=== PATIENT | male | born 1950 | race Caucasian/White ===

== ENCOUNTER 2016-09-06 07:35 | Day surgery (SDC) | payer BC ==
[2016-09-06] MEDS ORDERED: MIDAZOLAM HCL 2MG/2ML VIAL IV ONE (13:19)
[2016-09-06] MEDS ORDERED: LIDOCAINE 2% MDV (20MG/ML) 20ML VIAL IV ONE (13:19)
[2016-09-06] MEDS ORDERED: PROPOFOL 10 MG/ML VIAL IV ONE (13:19)
--- NOTE | 2016-09-11 15:53 | Operative Note ---
DATE OF SURGERY: 09/06/2016 OPERATION: COLONOSCOPY with cold forceps polypectomy. PREOPERATIVE DIAGNOSIS: Colorectal cancer screening, average risk. POSTOPERATIVE DIAGNOSES: 1. Descending colon polyp. 2. Sigmoid diverticulosis. PREPARATION QUALITY: Good to excellent. ESTIMATED BLOOD LOSS: Minimum. SPECIMENS: Descending polyp. COMPLICATIONS: None apparent. PROCEDURE: After informed consent was obtained from the patient, he was placed in the left lateral decubitus position in the endoscopy suite, sedated and monitored by the department of anesthesia. Digital rectal exam was unremarkable. A well-lubricated [id number] colonoscope was inserted into the rectum and advanced to the cecum. Preparation quality was good to excellent. The ileocecal valve, appendiceal orifice, ascending colon, and transverse colon were free of inflammatory changes, mass lesions, or polyps. There was a diminutive descending colon polyp which was removed in piecemeal fashion with a cold forceps. Minimal bleeding was noted. The sigmoid colon revealed a few diverticula but no other abnormalities. The rectum was unremarkable in forward and in J-turn views. The endoscope was straightened, the rectal ampulla deflated, and the endoscope was removed. RECOMMENDATIONS: The patient should follow a high-fiber diet. He will require repeat colonoscopy in 5-10 years pending tissue histology. As always, thank you for allowing me to participate in the healthcare of your patients. CC: Dr. Julian GRUBBS
== END 2016-09-06 10:02 | disposition home or self-care (01) ==
LOC: HOP 07:35
PROVIDERS: ATTEND Internal Medicine Gastroenterology
DX: Z12.11 Encounter for screening for malignant neoplasm of colon (principal); D12.4 Benign neoplasm of descending colon; K57.30 Diverticulosis of large intestine without perforation or abscess without bleeding; E78.00 Pure hypercholesterolemia, unspecified

== ENCOUNTER 2016-10-12 17:29 | Inpatient (IN) | payer BC ==
[2016-10-12 18:08] LABS: BASO % 0.5 % (0-6); EOS % 1.4 % (0-6); GRAN % 60.9 % (47-80); HEMOGLOBIN 15.1 gm/dl (14.0-18.0); LYMPH % 31.4 % (16-45); MEAN CELL VOLUME 82.7 fl (81-97); MEAN CORPUSCULAR HGB CONC 35.1 g/dl (32-36); MONO % 5.8 % (0-9); PLATELET COUNT 292 K/uL (130-400); RED CELL DISTRIBUTION WIDTH 12.1 % (11.5-14.5); WHITE BLOOD COUNT W/O DIFF 9.2 K/uL (4.2-12.2)
[2016-10-12 18:21] LABS: ACETONE,SERUM NEGATIVE (NEGATIVE)
--- NOTE | 2016-10-12 18:22 | Emergency Department Record ---
History of Present Illness - General Chief complaint: Hypergylcemia Stated complaint: HIGH BLOOD SUGAR Time Seen by Provider: 10/12/16 17:55 Source: Patient Mode of Arrival: Ambulatory Limitations: No limitations - History of Present Illness Initial comments: pt had a colonoscopy a month ago and ever since has been having increased thirst , tiredness and urination. he checked his bs yesterday on his sisters acucheck and found that he was high. he bought a glucometer today and checked it again and it was 489. he also has been having blurred vision. MD Complaint: Lack of energy -: Unknown Consistency: Getting worse Improves with: None Worsens with: None - [place] Coma Scale Eye Response: (4) Open spontaneously Motor Response: (6) Obeys commands Verbal Response: (5) Oriented Jerry Total: 15 - Related Data Home Medications Medication Instructions Recorded Confirmed Last Taken Atorvastatin Calcium [Lipitor] 20 mg PO DAILY 10/12/16 10/12/16 10/12/16 Allergies Allergy/AdvReac Type Severity Reaction Status Date / Time codeine AdvReac ABDOMINAL Verified 10/12/16 17:46 PAIN Travel Screening - Travel/Exposure Within Last 30 Days Have you traveled within the last 30 days?: No - Travel/Exposure Within Last Year Have you traveled outside the [place] in the last year?: No - Additonal Travel Details Have you been exposed to anyone with a communicable illness?: No - Travel Symptoms Symptom Screening: None Review of Systems Reviewed: No additional complaints except as noted below Constitutional: Reports: As per HPI. Denies: Chills, Fever, Malaise, Night sweats, Weakness, Weight change Eyes: Reports: As per HPI. Denies: Eye discharge, Eye pain, Photophobia, Vision change ENT: Reports: As per HPI. Denies: Congestion, Dental pain, Ear pain, Epistaxis , Hearing loss, Throat pain Respiratory: Reports: As per HPI. Denies: Cough, Dyspnea, Hemoptysis, Stridor, Wheezes Cardiovascular: Reports: As per HPI. Denies: Arrhythmia, Chest pain, Dyspnea on exertion, Edema, Murmurs, Orthopnea, Palpitations, Paroxysmal nocturnal dyspnea, Rheumatic Fever, Syncope Endocrine: Reports: As per HPI. Denies: Fatigue, Heat or cold intolerance, Polydipsia, Polyuria Gastrointestinal: Reports: As per HPI. Denies: Abdominal pain, Constipation, Diarrhea, Hematemesis, Hematochezia, Melena, Nausea, Vomiting Genitourinary: Reports: As per HPI. Denies: Dysuria, Frequency, Hematuria, Incontinence, Retention, Testicular pain, Testicular mass, Urgency Musculoskeletal: Reports: As per HPI. Denies: Arthralgia, Back pain, Gout, Joint swelling, Myalgia, Neck pain Skin: Reports: As per HPI. Denies: Bruising, Change in color, Change in hair/ nails, Lesions, Pruritus, Rash Neurological: Reports: As per HPI. Denies: Abnormal gait, Confusion, Headache, Numbness, Paresthesias, Seizure, Tingling, Tremors, Vertigo, Weakness Psychiatric: Reports: As per HPI. Denies: Anxiety, Auditory hallucinations, Depression, Homicidal thoughts, Suicidal thoughts, Visual hallucinations Hematological/Lymphatic: Reports: As per HPI. Denies: Anemia, Blood Clots, Easy bleeding, Easy bruising, Swollen glands Past Medical History - SOCIAL HISTORY Smoking Status: Never smoker Alcohol Use: Occassional Drug Use: None - RESPIRATORY Hx Respiratory Disorders: Yes Hx Pneumonia: Yes - CARDIOVASCULAR Hx Cardio Disorders: Yes Comment:: high cholesterol - NEURO Hx Neuro Disorders: No - GI Hx GI Disorders: No - Hx Genitourinary Disorders: No - ENDOCRINE Hx Endocrine Disorders: No - MUSCULOSKELETAL Hx Musculoskeletal Disorders: Yes Hx Arthritis: Yes (right knee) Comment:: pain right knee - PSYCH Hx Psych Problems: No - HEMATOLOGY/ONCOLOGY Hx Hematology/Oncology Disorders: No Family Medical History Any Significant Family History?: Yes Hx Diabetes: Father, Mother Hx Heart Disease: Mother, Brother/Sister Physical Exam - General General Appearance: Alert, Oriented x3, Cooperative, Mild distress - Head Head exam: Normal inspection - Eye Eye exam: Normal appearance, PERRL, EOMI Pupils: Normal accommodation - ENT ENT exam: Normal exam, Mucous membranes dry, Normal external ear exam, Normal orophraynx Ear exam: Normal external inspection. negative: External canal tenderness Nasal Exam: Normal inspection. negative: Discharge, Sinus tenderness Mouth exam: Normal external inspection, Tongue normal Teeth exam: Normal inspection. negative: Dental caries Throat exam: Normal inspection. negative: Tonsillar erythema, Tonsillar exudate - Neck Neck exam: Normal inspection, Full ROM. negative: Tenderness - Respiratory Respiratory exam: Normal lung sounds bilaterally. negative: Respiratory distress - Cardiovascular Cardiovascular Exam: Regular rate, Normal rhythm, Normal heart sounds - GI/Abdominal GI/Abdominal exam: Soft, Normal bowel sounds. negative: Tenderness - Rectal Rectal exam: Deferred - exam: Deferred - Extremities Extremities exam: Normal inspection, Full ROM, Normal capillary refill. negative: Tenderness - Back Back exam: Reports: Normal inspection, Full ROM. Denies: Muscle spasm, Rash noted, Tenderness - Neurological Neurological exam: Alert, CN II-XII intact, Normal gait, Oriented X3 - Psychiatric Psychiatric exam: Normal affect, Normal mood - Skin Skin exam: Dry, Intact, Normal color, Warm Course Vital Signs 10/12/16 17:48 Temperature 98.3 F Pulse Rate 96 H Respiratory 20 Rate Blood Pressure 132/102 Pulse Ox 97 Medical Decision Making - Management Options MDM Management: Additional Work-up Planned (e.g. ADM/Transfer/OP Study) - Data Complexity MDM Data: Labs Ordered and/or Reviewed, X-Ray Ordered and/or Reviewed - Lab Data Result diagrams: 10/12/16 18:00 10/12/16 18:00 Lab Results 10/12/16 10/12/16 10/12/16 Range/Units 17:56 18:00 18:00 WBC 9.2 (4.2-12.2) K/uL RBC 5.20 (4.40-5.70) M/uL Hgb 15.1 (14.0-18.0) gm/dl Hct 43.0 (42.0-52.0) % MCV 82.7 (81-97) fl MCH 29.0 (27-33) pg MCHC 35.1 (32-36) g/dl RDW 12.1 (11.5-14.5) % Plt Count 292 (130-400) K/uL MPV 11.0 H (7.4-10.4) fl Gran % 60.9 (47-80) % Lymphocytes % 31.4 (16-45) % Monocytes % 5.8 (0-9) % Eosinophils % 1.4 (0-6) % Basophils % 0.5 (0-6) % VBG pH 7.42 H (7.32-7.41) POC Glucose 472 H* (70-110) mg/dL Disposition Disposition: Admit Clinical Impression: New onset type 2 diabetes mellitus Hyperglycemia due to type 2 diabetes mellitus Qualifiers: Diabetes mellitus exterminator helper insulin use: without exterminator helper use Qualified Code(s ): E11.65 - Type 2 diabetes mellitus with hyperglycemia Disposition: Still a Patient at [facility] Decision to Admit: Admit from ER Decision to Admit Date: 10/12/16 Decision to Admit Time: 18:44 Forms: Patient Portal Access
[2016-10-12 18:24] LABS: ANION GAP 11.5 (7-16); BLOOD UREA NITROGEN 20 mg/dL (9-20); CARBON DIOXIDE 22.5 mmol/L (22-30); CREATININE 0.9 mg/dL (0.66-1.25); EST GLOMERULAR FILTRATION RATE > 60 ml/min
[2016-10-12] MEDS ORDERED: HUMULIN R 100 UNIT/ML VIAL SQ ONE ×2 (18:25→19:26)
[2016-10-12] MEDS ORDERED: 0.9 % SODIUM CHLORIDE 1,000 ML BAG IV ONE (18:25)
[2016-10-12 18:30] LABS: GLUCOSE,RANDOM 519 mg/dL (70-110)
[2016-10-12 18:30] LABS: URINE APPEARANCE CLEAR; URINE BILIRUBIN NEGATIVE (NEGATIVE); URINE BLOOD NEGATIVE (NEGATIVE); URINE COLOR YELLOW; URINE KETONE 15 mg/dL (NEGATIVE); URINE LEUKOCYTE ESTERASE NEGATIVE (NEGATIVE); URINE NITRITE NEGATIVE (NEGATIVE); URINE PROTEIN NEGATIVE (NEGATIVE); URINE UROBILINOGEN 0.2 E.U./dL (0.20 - 1.00)
[2016-10-12 18:31] LABS: URINE GLUCOSE (UA) >=1000 mg/dL (NEGATIVE)
[2016-10-12] MEDS ORDERED: HUMULIN R 100 UNIT/ML VIAL SQ PRN (19:47)
[2016-10-12] MEDS ORDERED: NOVOLOG FLEXPEN (INSULIN ASPART) 100 UNITS/ML SQ ONE (20:38)
[2016-10-12] MEDS: NOVOLOG FLEXPEN (INSULIN ASPART) 100 UNITS/ML SQ SCH (22:45)
[2016-10-12] MEDS: 0.9 % SODIUM CHLORIDE 1000ML 1,000 ML IV PRN (22:48)
[2016-10-13 06:24] LABS: BASO % 0.6 % (0-6); EOS % 2.4 % (0-6); GRAN % 48.7 % (47-80); HEMATOCRIT 37.4 % (42.0-52.0); HEMOGLOBIN 13.1 gm/dl (14.0-18.0); LYMPH % 41.6 % (16-45); MEAN CELL VOLUME 83.3 fl (81-97); MEAN PLATELET VOLUME 10.8 fl (7.4-10.4); MONO % 6.7 % (0-9); PLATELET COUNT 238 K/uL (130-400); RED BLOOD COUNT 4.49 M/uL (4.40-5.70); RED CELL DISTRIBUTION WIDTH 12.1 % (11.5-14.5); WHITE BLOOD COUNT W/O DIFF 8.1 K/uL (4.2-12.2)
[2016-10-13 06:33] LABS: ALB/GLOB RATIO 1.3 (1.1-1.8); ALBUMIN 3.4 gm/dL (3.5-5.0); ALKALINE PHOSPHATASE 85 U/L (38-126); ALT/SGPT 37 U/L (21-72); ANION GAP 8.1 (7-16); AST/SGOT 22 U/L (17-59); BILIRUBIN,TOTAL 0.69 mg/dL (0.2-1.3); BLOOD UREA NITROGEN 16 mg/dL (9-20); CARBON DIOXIDE 23.9 mmol/L (22-30); CHOLESTEROL 131 mg/dL (0-200); CREATININE 0.7 mg/dL (0.66-1.25); EST GLOMERULAR FILTRATION RATE > 60 ml/min; GLUCOSE,RANDOM 154 mg/dL (70-110); HDL CHOLESTEROL 24 mg/dL (40-60); TOTAL PROTEIN 6.1 gm/dL (6.3-8.2); TRIGLYCERIDES 136 mg/dL (30-200); VLDL CHOLESTEROL 27 mg/dL (10.00-40.00)
[2016-10-13 06:34] LABS: MEAN CORPUSCULAR HEMOGLOBIN 29.1 pg (27-33)
[2016-10-13 06:46] LABS: LDL CHOLESTEROL/MEASURED 86.5 mg/dL (0-100)
[2016-10-13 07:04] LABS: THYROID STIMULATING HORMONE 1.72 uIU/ml (0.465-4.68)
[2016-10-13] MEDS: NOVOLOG FLEXPEN (INSULIN ASPART) 100 UNITS/ML SQ SCH ×4 (07:45→22:08)
[2016-10-13] MEDS: METFORMIN ER HCL 500 MG TAB.ER.24H PO SCH (07:45)
[2016-10-13] MEDS: ASPIRIN 81 MG TABEC PO SCH (09:25)
[2016-10-13] MEDS: ACETAMINOPHEN 500 MG TABLET PO PRN ×2 (09:25→22:15)
[2016-10-13] MEDS: LISINOPRIL 5 MG TABLET PO SCH (09:26)
[2016-10-13] MEDS: ATORVASTATIN 20 MG TABLET PO SCH (09:26)
[2016-10-13] MEDS: 0.9 % SODIUM CHLORIDE 1000ML 1,000 ML IV PRN ×2 (15:32→23:55)
[2016-10-14] MEDS: METFORMIN ER HCL 500 MG TAB.ER.24H PO SCH (07:36)
[2016-10-14] MEDS: NOVOLOG FLEXPEN (INSULIN ASPART) 100 UNITS/ML SQ SCH (07:37)
--- NOTE | 2016-10-14 07:55 | History & Physical ---
History of Present Illness - Date of Service Date of Service for History & Physical: 10/13/16 - History of Present Illness Admitting Diagnosis: new onset diabetes History of Present Illness: 66 y/o male with CC blurry vision, urinary frequency, increased thirst admitted for new onset DM. Past medical history included pneumonia, high cholesterol, right knee arthritis. Prior to arrival reported blurry vision, urinary frequency, increased thirst that has progressively worsened since August 2016. Used his brother's glucometer to check blood sugar and the meter read "high". Reports strong family history of DM (mother, 2 siblings). Last eye exam was 1 year ago. Reports over the past couple of years his PCP has been monitoring borderline high blood sugars but has not been started on any medications. Is not a smoker. Exercises3-4 days per week (45-60 min on treadmill). Reports he usually eats an "ok" diet but began eating more junk food after he retired 10 years ago. Denies chest pain or neuropathy. While in ED his blood sugar was >500, A!C 13.68. Short acting insulin given in ED, tolerated well. Admitted for initiation of diabetes medical management, education and IV hydration. EKG NSR. Laboratory Results WBC 8.1 K/uL (4.2-12.2) 10/13/16 05:55 RBC 4.49 M/uL (4.40-5.70) 10/13/16 05:55 Hgb 13.1 gm/dl (14.0-18.0) L 10/13/16 05:55 Hct 37.4 % (42.0-52.0) L 10/13/16 05:55 MCV 83.3 fl (81-97) 10/13/16 05:55 MCH 29.1 pg (27-33) 10/13/16 05:55 MCHC 35.0 g/dl (32-36) 10/13/16 05:55 RDW 12.1 % (11.5-14.5) 10/13/16 05:55 Plt Count 238 K/uL (130-400) 10/13/16 05:55 MPV 10.8 fl (7.4-10.4) H 10/13/16 05:55 Gran % 48.7 % (47-80) 10/13/16 05:55 Lymphocytes % 41.6 % (16-45) 10/13/16 05:55 Monocytes % 6.7 % (0-9) 10/13/16 05:55 Eosinophils % 2.4 % (0-6) 10/13/16 05:55 Basophils % 0.6 % (0-6) 10/13/16 05:55 VBG pH 7.42 (7.32-7.41) H 10/12/16 18:00 Sodium 139 mmol/L (136-145) 10/13/16 05:55 Potassium 3.6 mmol/L (3.5-5.1) 10/13/16 05:55 Chloride 107 mmol/L (98-107) 10/13/16 05:55 Carbon Dioxide 23.9 mmol/L (22-30) 10/13/16 05:55 Anion Gap 8.1 (7-16) 10/13/16 05:55 BUN 16 mg/dL (9-20) 10/13/16 05:55 Creatinine 0.7 mg/dL (0.66-1.25) 10/13/16 05:55 Estimated GFR > 60 ml/min 10/13/16 05:55 POC Glucose 176 mg/dL (70-110) H 10/14/16 07:00 Random Glucose 154 mg/dL (70-110) H 10/13/16 05:55 Hemoglobin A1c 13.68 % (4.80-6.00) H 10/12/16 18:00 Calcium 9.1 mg/dL (8.5-10.1) 10/13/16 05:55 Total Bilirubin 0.69 mg/dL (0.2-1.3) 10/13/16 05:55 AST 22 U/L (17-59) 10/13/16 05:55 ALT 37 U/L (21-72) 10/13/16 05:55 Alkaline Phosphatase 85 U/L (38-126) 10/13/16 05:55 Total Protein 6.1 gm/dL (6.3-8.2) L 10/13/16 05:55 Albumin 3.4 gm/dL (3.5-5.0) L 10/13/16 05:55 Globulin 2.7 gm/dL (1.4-4.8) 10/13/16 05:55 Albumin/Globulin Ratio 1.3 (1.1-1.8) 10/13/16 05:55 Triglycerides 136 mg/dL (30-200) 10/13/16 05:55 Cholesterol 131 mg/dL (0-200) 10/13/16 05:55 LDL Cholesterol [place] 86.5 mg/dL (0-100) 10/13/16 05:55 VLDL Cholesterol 27 mg/dL (10.00-40.00) 10/13/16 05:55 HDL Cholesterol 24 mg/dL (40-60) L 10/13/16 05:55 TSH 1.72 uIU/ml (0.465-4.68) 10/13/16 05:55 Urine Color Yellow 10/12/16 18:25 Urine Appearance Clear 10/12/16 18:25 Urine pH 5.5 (5.0-8.0) 10/12/16 18:25 Ur Specific [place] 1.010 (1.002-1.030) 10/12/16 18:25 Urine Protein Negative (NEGATIVE) 10/12/16 18:25 Urine Glucose (UA) >=1000 mg/dl (NEGATIVE) H 10/12/16 18:25 Urine Ketones 15 mg/dl (NEGATIVE) H 10/12/16 18:25 Urine Blood Negative (NEGATIVE) 10/12/16 18:25 Urine Nitrite Negative (NEGATIVE) 10/12/16 18:25 Urine Bilirubin Negative (NEGATIVE) 10/12/16 18:25 Urine Urobilinogen 0.2 E.U./dL (0.20 - 1.00) 10/12/16 18:25 Ur Leukocyte Esterase Negative (NEGATIVE) 10/12/16 18:25 Acetone, Qual Negative (NEGATIVE) 10/12/16 18:00 Vital Signs - Last 24 Hrs Temp Pulse Resp BP Pulse Ox 10/14/16 10:00 97.7 F 76 16 135/78 97 10/14/16 07:48 16 10/14/16 07:11 97.8 F 61 18 108/61 97 10/13/16 22:00 98.7 F 61 18 138/[address] Jordan Travel Screening - Travel/Exposure Within Last 30 Days Have you traveled within the last 30 days?: No - Travel/Exposure Within Last Year Have you traveled outside the [place] in the last year?: No - Additonal Travel Details Have you been exposed to anyone with a communicable illness?: No - Travel Symptoms Symptom Screening: None Review of Systems Constitutional: Reports: As per HPI. Denies: Chills, Fever, Malaise, Night sweats, Weakness, Weight change Eyes: Reports: As per HPI. Denies: Eye discharge, Eye pain, Photophobia, Vision change ENT: Reports: As per HPI. Denies: Congestion, Dental pain, Ear pain, Epistaxis , Hearing loss, Throat pain Respiratory: Reports: As per HPI. Denies: Cough, Dyspnea, Hemoptysis, Stridor, Wheezes Cardiovascular: Reports: As per HPI. Denies: Arrhythmia, Chest pain, Dyspnea on exertion, Edema, Murmurs, Orthopnea, Palpitations, Paroxysmal nocturnal dyspnea, Rheumatic Fever, Syncope Endocrine: Reports: As per HPI. Denies: Fatigue, Heat or cold intolerance, Polydipsia, Polyuria Gastrointestinal: Reports: As per HPI. Denies: Abdominal pain, Constipation, Diarrhea, Hematemesis, Hematochezia, Melena, Nausea, Vomiting Genitourinary: Reports: As per HPI. Denies: Dysuria, Frequency, Hematuria, Incontinence, Retention, Testicular pain, Testicular mass, Urgency Musculoskeletal: Reports: As per HPI. Denies: Arthralgia, Back pain, Gout, Joint swelling, Myalgia, Neck pain Skin: Reports: As per HPI. Denies: Bruising, Change in color, Change in hair/ nails, Lesions, Pruritus, Rash Neurological: Reports: As per HPI. Denies: Abnormal gait, Confusion, Headache, Numbness, Paresthesias, Seizure, Tingling, Tremors, Vertigo, Weakness Psychiatric: Reports: As per HPI. Denies: Anxiety, Auditory hallucinations, Depression, Homicidal thoughts, Suicidal thoughts, Visual hallucinations Hematological/Lymphatic: Reports: As per HPI. Denies: Anemia, Blood Clots, Easy bleeding, Easy bruising, Swollen glands Past Medical History - SOCIAL HISTORY Smoking Status: Never smoker - RESPIRATORY Hx Respiratory Disorders: Yes Hx Asthma: No Hx Bronchitis: No Hx COPD: No Hx Dyspnea: No Hx Pneumonia: Yes - CARDIOVASCULAR Hx Cardio Disorders: Yes Comment:: high cholesterol - NEURO Hx Neuro Disorders: No - GI Hx GI Disorders: No - Hx Genitourinary Disorders: No - ENDOCRINE Hx Endocrine Disorders: No - MUSCULOSKELETAL Hx Musculoskeletal Disorders: Yes Hx Arthritis: Yes (right knee) Comment:: pain right knee - PSYCH Hx Psych Problems: No - HEMATOLOGY/ONCOLOGY Hx Hematology/Oncology Disorders: No Family Medical History Any Significant Family History?: Yes Hx Diabetes: Father, Mother Hx Heart Disease: Mother, Brother/Sister H&P Meds/Allergies - Allergies Allergies: Allergies Allergy/AdvReac Type Severity Reaction Status Date / Time codeine AdvReac ABDOMINAL Verified 10/12/16 17:46 PAIN - Home Medications Home Medications Medication Instructions Recorded Confirmed Last Taken Atorvastatin Calcium [Lipitor] 20 mg PO DAILY 10/12/16 10/12/16 10/12/16 Previous Rx's Medication Instructions Recorded Aspirin Enteric-Coated [Ecotrin 81 mg PO DAILY 10/14/16 (EC)] Insulin Aspart [Novolog Flexpen] 1 unit SQ QIDINS #3 ml 10/14/16 Lisinopril [Zestril] 5 mg PO DAILY #30 tab 10/14/16 Metformin ER HCl [Glucophage Xr] 500 mg PO DAILYAC #120 tab.er.24h 10/14/16 - Active Medications Active Medications: Current Medications Acetaminophen (Tylenol 500mg Tab) 1,000 mg PO Q6H PRN PRN Reason: PAIN/TEMP Last Admin: 10/13/16 22:15 Dose: 1,000 mg Aspirin (Ecotrin (Ec)) 81 mg PO DAILY [facility] Last Admin: 10/13/16 09:25 Dose: 81 mg Atorvastatin Calcium (Lipitor) 20 mg PO DAILY [facility] Last Admin: 10/13/16 09:26 Dose: 20 mg Sodium Chloride () 1,000 mls @ 125 mls/hr IV .Q8H PRN PRN Reason: LARGE VOLUME IV Last Admin: 10/13/16 23:55 Dose: 125 mls/hr Insulin Aspart (Novolog Flexpen) 1 unit SQ QIDINS [facility] PRN Reason: Protocol Last Admin: 10/14/16 07:37 Dose: 8 unit Lisinopril (Zestril) 5 mg PO DAILY [facility] Last Admin: 10/13/16 09:26 Dose: 5 mg Metformin HCl (Glucophage Xr) 500 mg PO DAILYAC [facility] Last Admin: 10/14/16 07:36 Dose: 500 mg Physical Exam - Vital Signs Vital Signs: Vital Signs - Last 24 Hrs Temp Pulse Resp BP Pulse Ox 10/14/16 07:48 16 10/14/16 07:11 97.8 F 61 18 108/61 97 10/13/16 22:00 98.7 F 61 18 138/79 97 10/13/16 17:45 97.8 F 76 16 128/76 95 10/13/16 14:00 97.7 F 76 16 132/74 97 10/13/16 09:04 98.1 F 72 20 118/76 95 10/13/16 08:12 20 - General General Appearance: Alert, Oriented x3, Cooperative, No acute distress Limitations: No limitations - Head Head exam: Normal inspection - Eye Eye exam: Normal appearance, PERRL, EOMI Pupils: Normal accommodation - ENT ENT exam: Normal exam, Mucous membranes dry, Normal external ear exam, Normal orophraynx Ear exam: Normal external inspection. negative: External canal tenderness Nasal Exam: Normal inspection. negative: Discharge, Sinus tenderness Mouth exam: Normal external inspection, Tongue normal Teeth exam: Normal inspection. negative: Dental caries Throat exam: Normal inspection. negative: Tonsillar erythema, Tonsillar exudate - Neck Neck exam: Normal inspection, Full ROM. negative: Tenderness - Respiratory Respiratory exam: Normal lung sounds bilaterally. negative: Respiratory distress - Cardiovascular Cardiovascular Exam: Regular rate, Normal rhythm, Normal heart sounds Peripheral Pulses: 2+: Dorsalis Pedis (R), Dorsalis Pedis (L) - GI/Abdominal GI/Abdominal exam: Soft, Normal bowel sounds. negative: Tenderness - Rectal Rectal exam: Deferred - exam: Deferred - Extremities Extremities exam: Normal inspection, Full ROM, Normal capillary refill. negative: Tenderness - Back Back exam: Reports: Normal inspection, Full ROM. Denies: Muscle spasm, Rash noted, Tenderness - Neurological Neurological exam: Alert, CN II-XII intact, Normal gait, Oriented X3 - Psychiatric Psychiatric exam: Normal affect, Normal mood - Skin Skin exam: Dry, Intact, Normal color, Warm Results - Labs Result Diagrams: 10/13/16 05:55 10/13/16 05:55 Labs Last 24 Hours: Laboratory Results - last 24 hr 10/13/16 10/13/16 10/14/16 17:46 22:00 07:00 POC Glucose 301 H 228 H 176 H VTE H&P Assessment - Risk for VTE Risk for VTE: Yes Risk Level: Low Risk Assessment Date: 10/13/16 Risk Assessment Time: 09:00 VTE Orders Placed or Will Be Placed: Yes Plan - Inpatient Certification Inpatient Certification: Admit to inpatient care: Based on my medical assessment, after consideration of patient's risk factors (age, co-morbidities and patient presenting symptoms and acuity), I expect that this patient will remain in the hospital greater than or equal to two midnights and that the services needed warrant inpatient care because: Patient Risk Factors: [] Estimated length of stay: [] The patient may reasonably be expected to be discharged or transferred to a hospital within 96 hours after admission to [facility]. Services needed: [] Post hospital care (if known): [] I certify that my determination is in accordance with my understanding of Medicare requirements for reasonable and necessary inpatient services. - Detailed Diagnosis and Plan (1) Hyperglycemia due to type 2 diabetes mellitus Status: Acute Qualifiers: Diabetes mellitus termite control servicer insulin use: without termite control servicer use Qualified Code(s): E11.65 - Type 2 diabetes mellitus with hyperglycemia Base Code: E11.65 - TYPE 2 DIABETES MELLITUS WITH HYPERGLYCEMIA Comment: - 66 y/o male admitted new onswt DM after 1 month history of urinary frequency , increased thirst and blurry vision. Has strong family hx DM. FBS this am 154 - Metform initiated at 500mg QD with goal of 2,000mg total daily dosing - accu check AC/HS with sliding scale insulin, nursing to instruct testing and self administration - will not inititate long acting insulin at this time as FBS <200, admits to poor eating habits and commits to healthier eating habits - nursing to provide ADA diet information - continue to exercise per usual routine - ASA 81mg, TITO initiated-tolerating well - FLP this am unremarkable, already taking statin - TSH normal - plan for accu check AC/HS at discharge with sliding scale until follow up with PCP - will discharge in am (2) New onset type 2 diabetes mellitus Status: Acute Base Code: E11.9 - TYPE 2 DIABETES MELLITUS WITHOUT COMPLICATIONS Comment: 10/13/16- 66 y/o male admitted new onswt DM after 1 month history of urinary frequency, increased thirst and blurry vision. Has strong family hx DM. FBS this am 154 - Metform initiated at 500mg QD with goal of 2,000mg total daily dosing - accu check AC/HS with sliding scale insulin, nursing to instruct testing and self administration - will not inititate long acting insulin at this time as FBS <200, admits to poor eating habits and commits to healthier eating habits - nursing to provide ADA diet information - continue to exercise per usual routine - ASA 81mg, TITO initiated-tolerating well - FLP this am unremarkable, already taking statin - TSH normal - plan for accu check AC/HS at discharge with sliding scale until follow up with PCP - will discharge in am (3) DVT prophylaxis Status: Acute Base Code: [id number] - Comment: 10/13/16- ASA 81 mg, nursing to encourage frequent ambulation (4) Full code status Status: Acute Base Code: Z78.9 - OTHER SPECIFIED HEALTH STATUS Comment: 10/13- will remain full code during this hospitalization
--- NOTE | 2016-10-14 08:01 | Discharge Summary ---
Providers Discharge Summary Date: 10/14/16 Date of admission: 10/12/16 19:38 Expected Date of Discharge: 10/14/16 Attending physician: MARY MARTINEZ Primary care physician: LEYDA BOOTH D.O. Physical Exam - Vital Signs Vital Signs: Vital Signs - Last 24 Hrs Temp Pulse Resp BP Pulse Ox 10/14/16 07:48 16 10/14/16 07:11 97.8 F 61 18 108/61 97 10/13/16 22:00 98.7 F 61 18 138/79 97 10/13/16 17:45 97.8 F 76 16 128/76 95 10/13/16 14:00 97.7 F 76 16 132/74 97 10/13/16 09:04 98.1 F 72 20 118/76 95 10/13/16 08:12 20 - General General Appearance: Alert, Oriented x3, Cooperative, Mild distress Limitations: No limitations - Head Head exam: Normal inspection - Eye Eye exam: Normal appearance, PERRL, EOMI Pupils: Normal accommodation - ENT ENT exam: Normal exam, Mucous membranes dry, Normal external ear exam, Normal orophraynx Ear exam: Normal external inspection. negative: External canal tenderness Nasal Exam: Normal inspection. negative: Discharge, Sinus tenderness Mouth exam: Normal external inspection, Tongue normal Teeth exam: Normal inspection. negative: Dental caries Throat exam: Normal inspection. negative: Tonsillar erythema, Tonsillar exudate - Neck Neck exam: Normal inspection, Full ROM. negative: Tenderness - Respiratory Respiratory exam: Normal lung sounds bilaterally. negative: Respiratory distress - Cardiovascular Cardiovascular Exam: Regular rate, Normal rhythm, Normal heart sounds - GI/Abdominal GI/Abdominal exam: Soft, Normal bowel sounds. negative: Tenderness - Rectal Rectal exam: Deferred - exam: Deferred - Extremities Extremities exam: Normal inspection, Full ROM, Normal capillary refill. negative: Tenderness - Back Back exam: Reports: Normal inspection, Full ROM. Denies: Muscle spasm, Rash noted, Tenderness - Neurological Neurological exam: Alert, CN II-XII intact, Normal gait, Oriented X3 - Psychiatric Psychiatric exam: Normal affect, Normal mood - Skin Skin exam: Dry, Intact, Normal color, Warm Hospitalization - Hospitalization Admission Diagnosis: new onset diabetes - Problem List/Discharge Diagnosis (1) Hyperglycemia due to type 2 diabetes mellitus Status: Acute Discharge Diagnosis: Diabetes mellitus terminal supervisor insulin use: without mcfp use Qualified Code(s): E11.65 - Type 2 diabetes mellitus with hyperglycemia Base Code: E11.65 - TYPE 2 DIABETES MELLITUS WITH HYPERGLYCEMIA Comment: - 66 y/o male admitted new onswt DM after 1 month history of urinary frequency , increased thirst and blurry vision. Has strong family hx DM. FBS 10/13 154, <200. Continues to have blood sugar >250 throughout the day - Metform initiated at 500mg QD with goal of 2,000mg total daily dosing-is tolerating well - accu check AC/HS with sliding scale insulin, nursing to instruct testing and self administration - will not inititate long acting insulin at this time as FBS <200, admits to poor eating habits and commits to healthier eating habits - nursing to provide ADA diet information - continue to exercise per usual routine - ASA 81mg, TITO initiated-tolerating well - FLP unremarkable, already taking statin - TSH normal - plan for accu check AC/HS at discharge with sliding scale until follow up with PCP - follow up PCP 1-2 week after discharge (2) New onset type 2 diabetes mellitus Status: Acute Base Code: E11.9 - TYPE 2 DIABETES MELLITUS WITHOUT COMPLICATIONS Comment: 10/14/16- 66 y/o male admitted new onswt DM after 1 month history of urinary frequency, increased thirst and blurry vision. Has strong family hx DM. FBS 10/13 154, 10/14 <200. Continues to have blood sugar > 250 throughout the day - Metform initiated at 500mg QD with goal of 2,000mg total daily dosing-is tolerating well - accu check AC/HS with sliding scale insulin, nursing to instruct testing and self administration - will not inititate long acting insulin at this time as FBS <200, admits to poor eating habits and commits to healthier eating habits - nursing to provide ADA diet information - continue to exercise per usual routine - ASA 81mg, TITO initiated-tolerating well - FLP unremarkable, already taking statin - TSH normal - plan for accu check AC/HS at discharge with sliding scale until follow up with PCP - follow up PCP 1-2 week after discharge (3) DVT prophylaxis Status: Acute Base Code: [id number] - Comment: 10/14/16- ASA 81 mg, nursing to encourage frequent ambulation (4) Full code status Status: Acute Base Code: Z78.9 - OTHER SPECIFIED HEALTH STATUS Comment: 10/14- will remain full code during this hospitalization - Hospitalization Course Disposition: Home, Self-Care Hospital Course: Admitting Diagnosis: new onset diabetes History of Present Illness: 66 y/o male with CC blurry vision, urinary frequency, increased thirst admitted for new onset DM. Past medical history included pneumonia, high cholesterol, right knee arthritis. Prior to arrival reported blurry vision, urinary frequency, increased thirst that has progressively worsened since August 2016. Used his brother's glucometer to check blood sugar and the meter read "high". Reports strong family history of DM (mother, 2 siblings). Last eye exam was 1 year ago. Reports over the past couple of years his PCP has been monitoring borderline high blood sugars but has not been started on any medications. Is not a smoker. Exercises3-4 days per week (45-60 min on treadmill). Reports he usually eats an "ok" diet but began eating more junk food after he retired 10 years ago. Denies chest pain or neuropathy. While in ED his blood sugar was >500, A!C 13.68. Short acting insulin given in ED, tolerated well. Admitted for initiation of diabetes medical management, education and IV hydration. EKG NSR. Laboratory Results WBC 8.1 K/uL (4.2-12.2) 10/13/16 05:55 RBC 4.49 M/uL (4.40-5.70) 10/13/16 05:55 Hgb 13.1 gm/dl (14.0-18.0) L 10/13/16 05:55 Hct 37.4 % (42.0-52.0) L 10/13/16 05:55 MCV 83.3 fl (81-97) 10/13/16 05:55 MCH 29.1 pg (27-33) 10/13/16 05:55 MCHC 35.0 g/dl (32-36) 10/13/16 05:55 RDW 12.1 % (11.5-14.5) 10/13/16 05:55 Plt Count 238 K/uL (130-400) 10/13/16 05:55 MPV 10.8 fl (7.4-10.4) H 10/13/16 05:55 Gran % 48.7 % (47-80) 10/13/16 05:55 Lymphocytes % 41.6 % (16-45) 10/13/16 05:55 Monocytes % 6.7 % (0-9) 10/13/16 05:55 Eosinophils % 2.4 % (0-6) 10/13/16 05:55 Basophils % 0.6 % (0-6) 10/13/16 05:55 VBG pH 7.42 (7.32-7.41) H 10/12/16 18:00 Sodium 139 mmol/L (136-145) 10/13/16 05:55 Potassium 3.6 mmol/L (3.5-5.1) 10/13/16 05:55 Chloride 107 mmol/L (98-107) 10/13/16 05:55 Carbon Dioxide 23.9 mmol/L (22-30) 10/13/16 05:55 Anion Gap 8.1 (7-16) 10/13/16 05:55 BUN 16 mg/dL (9-20) 10/13/16 05:55 Creatinine 0.7 mg/dL (0.66-1.25) 10/13/16 05:55 Estimated GFR > 60 ml/min 10/13/16 05:55 POC Glucose 176 mg/dL (70-110) H 10/14/16 07:00 Random Glucose 154 mg/dL (70-110) H 10/13/16 05:55 Hemoglobin A1c 13.68 % (4.80-6.00) H 10/12/16 18:00 Calcium 9.1 mg/dL (8.5-10.1) 10/13/16 05:55 Total Bilirubin 0.69 mg/dL (0.2-1.3) 10/13/16 05:55 AST 22 U/L (17-59) 10/13/16 05:55 ALT 37 U/L (21-72) 10/13/16 05:55 Alkaline Phosphatase 85 U/L (38-126) 10/13/16 05:55 Total Protein 6.1 gm/dL (6.3-8.2) L 10/13/16 05:55 Albumin 3.4 gm/dL (3.5-5.0) L 10/13/16 05:55 Globulin 2.7 gm/dL (1.4-4.8) 10/13/16 05:55 Albumin/Globulin Ratio 1.3 (1.1-1.8) 10/13/16 05:55 Triglycerides 136 mg/dL (30-200) 10/13/16 05:55 Cholesterol 131 mg/dL (0-200) 10/13/16 05:55 LDL Cholesterol [place] 86.5 mg/dL (0-100) 10/13/16 05:55 VLDL Cholesterol 27 mg/dL (10.00-40.00) 10/13/16 05:55 HDL Cholesterol 24 mg/dL (40-60) L 10/13/16 05:55 TSH 1.72 uIU/ml (0.465-4.68) 10/13/16 05:55 Urine Color Yellow 10/12/16 18:25 Urine Appearance Clear 10/12/16 18:25 Urine pH 5.5 (5.0-8.0) 10/12/16 18:25 Ur Specific [place] 1.010 (1.002-1.030) 10/12/16 18:25 Urine Protein Negative (NEGATIVE) 10/12/16 18:25 Urine Glucose (UA) >=1000 mg/dl (NEGATIVE) H 10/12/16 18:25 Urine Ketones 15 mg/dl (NEGATIVE) H 10/12/16 18:25 Urine Blood Negative (NEGATIVE) 10/12/16 18:25 Urine Nitrite Negative (NEGATIVE) 10/12/16 18:25 Urine Bilirubin Negative (NEGATIVE) 10/12/16 18:25 Urine Urobilinogen 0.2 E.U./dL (0.20 - 1.00) 10/12/16 18:25 Ur Leukocyte Esterase Negative (NEGATIVE) 10/12/16 18:25 Acetone, Qual Negative (NEGATIVE) 10/12/16 18:00 Vital Signs - Last 24 Hrs Temp Pulse Resp BP Pulse Ox 10/14/16 10:00 97.7 F 76 16 135/78 97 10/14/16 07:48 16 10/14/16 07:11 97.8 F 61 18 108/61 97 10/13/16 22:00 98.7 F 61 18 138/[address] Booth Procedures: Cardiology Procedures 10/13/16 06:00 EKG ONCE Abnormal Labs: Abnormal Lab Results 10/12/16 10/12/16 10/13/16 Range/Units 20:30 22:37 05:55 Hgb 13.1 L (14.0-18.0) gm/dl Hct 37.4 L (42.0-52.0) % MPV 10.8 H (7.4-10.4) fl POC Glucose 342 H 341 H (70-110) mg/dL Random Glucose (70-110) mg/dL Total Protein (6.3-8.2) gm/dL Albumin (3.5-5.0) gm/dL HDL Cholesterol (40-60) mg/dL 10/13/16 10/13/16 10/13/16 Range/Units 05:55 17:46 22:00 Hgb (14.0-18.0) gm/dl Hct (42.0-52.0) % MPV (7.4-10.4) fl POC Glucose 301 H 228 H (70-110) mg/dL Random Glucose 154 H (70-110) mg/dL Total Protein 6.1 L (6.3-8.2) gm/dL Albumin 3.4 L (3.5-5.0) gm/dL HDL Cholesterol 24 L (40-60) mg/dL 10/14/16 Range/Units 07:00 Hgb (14.0-18.0) gm/dl Hct (42.0-52.0) % MPV (7.4-10.4) fl POC Glucose 176 H (70-110) mg/dL Random Glucose (70-110) mg/dL Total Protein (6.3-8.2) gm/dL Albumin (3.5-5.0) gm/dL HDL Cholesterol (40-60) mg/dL Condition at Discharge: (2) Stable Discharge Medications - Discharge Medications Prescriptions: Insulin Aspart [Novolog Flexpen] 1 unit SQ QIDINS #3 ml Lisinopril [Zestril] 5 mg PO DAILY #30 tab Metformin ER HCl [Glucophage Xr] 500 mg PO DAILYAC #120 tab.er.24h Home Medications: Ambulatory Orders Atorvastatin Calcium [Lipitor] 20 mg PO DAILY 10/12/16 [Last Taken 10/12/16] Aspirin Enteric-Coated [Ecotrin (EC)] 81 mg PO DAILY 10/14/16 [Last Taken Unknown] Insulin Aspart [Novolog Flexpen] 1 unit SQ QIDINS #3 ml 10/14/16 [Last Taken Unknown] Lisinopril [Zestril] 5 mg PO DAILY #30 tab 10/14/16 [Last Taken Unknown] Metformin ER HCl [Glucophage Xr] 500 mg PO DAILYAC #120 tab.er.24h 10/14/16 [ Last Taken Unknown] Discharge Plan - Discharge Instructions Activity at Discharge: Resume Usual Activities As Tolerated Diet at Discharge: Diabetic Diet, Low Fat, Low Cholesterol Instructions: How to Check Your Blood Sugar (DC), Diabetic Ketoacidosis (DC), Hypoglycemia in a Person with Diabetes (DC), Type 2 Diabetes in Adults (DC), What is Insulin (DC), How to Give an Insulin Injection (DC), Insulin Pens (DC), Managing Diabetes During Sick Days (DC), Diabetic Hyperglycemia (DC) Additional Instructions: Check your blood sugar before each meal and give yourself insulin based on your sliding scale. Keep a record of your blood sugars and how much insulin you are taking. Take this with you to see Dr Booth. Follow ADA diet. Watch for signs of low blood sugar (below 80)(hypoglycemia) See handout. Follow up with your doctor this week. Contact [facility] diabetic classes [phone] Activity as tolerated-exercise is important Resume home meds. Return to the ED if having signs of hypoglycemia/hyperglycemia (high blood sugar ) If any questions call the nurses station [phone] Take Metformin as directed Take Lisinopril as directed.
[2016-10-14] MEDS: ASPIRIN 81 MG TABEC PO SCH (09:13)
[2016-10-14] MEDS: ATORVASTATIN 20 MG TABLET PO SCH (09:13)
[2016-10-14] MEDS: LISINOPRIL 5 MG TABLET PO SCH (09:13)
== END 2016-10-14 10:00 | disposition home or self-care (01) | DRG 639 ==
LOC: ER 17:29 → MEDSURG 19:38
PROVIDERS: ADMIT Family Medicine; ATTEND Family Medicine
DX: E11.65 Type 2 diabetes mellitus with hyperglycemia (principal); Z79.4 Long term (current) use of insulin; Z79.84 Long term (current) use of oral hypoglycemic drugs; Z78.9 Other specified health status; E78.00 Pure hypercholesterolemia, unspecified
CPT/HCPCS: 36416; 80048; 80053; 80061; 81003; 82009; 82800; 82948; 83036; 84443; 85025; 93005; 93010; 96372; 99223; 99239; 99285; J7030

== ENCOUNTER 2017-05-01 08:09 | Emergency (ER) | payer BC ==
[2017-05-01 09:06] LABS: BASO % 0.6 % (0-6); EOS % 2.2 % (0-6); GRAN % 57.7 % (47-80); HEMATOCRIT 38.3 % (42.0-52.0); HEMOGLOBIN 12.6 gm/dl (14.0-18.0); LYMPH % 31.4 % (16-45); MEAN CELL VOLUME 86.5 fl (81-97); MEAN CORPUSCULAR HEMOGLOBIN 28.4 pg (27-33); MEAN CORPUSCULAR HGB CONC 32.9 g/dl (32-36); MONO % 8.1 % (0-9); PLATELET COUNT 240 K/uL (130-400); RED BLOOD COUNT 4.43 M/uL (4.40-5.70); RED CELL DISTRIBUTION WIDTH 12.2 % (11.5-14.5); WHITE BLOOD COUNT W/O DIFF 6.8 K/uL (4.2-12.2)
--- NOTE | 2017-05-01 09:14 | Emergency Department Record ---
History of Present Illness - General Chief complaint: Nosebleed/epistaxis Stated complaint: NOSE BLEED Time Seen by Provider: 05/01/17 08:37 Source: Patient Mode of Arrival: Ambulatory - History of Present Illness Initial comments: right nostril nose bleed and on asa and anat complaint: Epistaxis Onset/Timin -: Hour(s) Location: Nose Context-Epistaxis: Warfarin use - Related Data Home Medications Medication Instructions Recorded Confirmed Last Taken Ticagrelor [Brilinta] 60 mg PO DAILY 05/01/17 05/01/17 Unknown Previous Rx's Medication Instructions Recorded Aspirin Enteric-Coated [Ecotrin 81 mg PO DAILY 10/14/16 (EC)] Insulin Aspart [Novolog Flexpen] 1 unit SQ QIDINS #3 ml 10/14/16 Lisinopril [Zestril] 5 mg PO DAILY #30 tab 10/14/16 Metformin ER HCl [Glucophage Xr] 500 mg PO DAILYAC #120 tab.er.24h 10/14/16 Allergies Allergy/AdvReac Type Severity Reaction Status Date / Time codeine AdvReac ABDOMINAL Verified 05/01/17 08:18 PAIN Travel Screening - Travel/Exposure Within Last 30 Days Have you traveled within the last 30 days?: No Review of Systems Reviewed: No additional complaints except as noted below Constitutional: Reports: As per HPI. Denies: Chills, Fever, Malaise, Night sweats, Weakness, Weight change Eyes: Reports: As per HPI. Denies: Eye discharge, Eye pain, Photophobia, Vision change ENT: Reports: As per HPI, Epistaxis. Denies: Congestion, Dental pain, Ear pain , Hearing loss, Throat pain Respiratory: Reports: As per HPI. Denies: Cough, Dyspnea, Hemoptysis, Stridor, Wheezes Cardiovascular: Reports: As per HPI. Denies: Arrhythmia, Chest pain, Dyspnea on exertion, Edema, Murmurs, Orthopnea, Palpitations, Paroxysmal nocturnal dyspnea, Rheumatic Fever, Syncope Endocrine: Reports: As per HPI. Denies: Fatigue, Heat or cold intolerance, Polydipsia, Polyuria Gastrointestinal: Reports: As per HPI. Denies: Abdominal pain, Constipation, Diarrhea, Hematemesis, Hematochezia, Melena, Nausea, Vomiting Genitourinary: Reports: As per HPI. Denies: Dysuria, Frequency, Hematuria, Incontinence, Retention, Testicular pain, Testicular mass, Urgency Musculoskeletal: Reports: As per HPI. Denies: Arthralgia, Back pain, Gout, Joint swelling, Myalgia, Neck pain Skin: Reports: As per HPI. Denies: Bruising, Change in color, Change in hair/ nails, Lesions, Pruritus, Rash Neurological: Reports: As per HPI. Denies: Abnormal gait, Confusion, Headache, Numbness, Paresthesias, Seizure, Tingling, Tremors, Vertigo, Weakness Psychiatric: Reports: As per HPI. Denies: Anxiety, Auditory hallucinations, Depression, Homicidal thoughts, Suicidal thoughts, Visual hallucinations Hematological/Lymphatic: Reports: As per HPI. Denies: Anemia, Blood Clots, Easy bleeding, Easy bruising, Swollen glands Past Medical History - SOCIAL HISTORY Smoking Status: Never smoker Alcohol Use: None Drug Use: None - RESPIRATORY Hx Respiratory Disorders: Yes Hx Pneumonia: Yes - CARDIOVASCULAR Hx Cardio Disorders: Yes Hx Cardiac Cath: Yes Hx Chest Pain: Yes Comment:: high cholesterol, stent - NEURO Hx Neuro Disorders: No - GI Hx GI Disorders: No - Hx Genitourinary Disorders: No - ENDOCRINE Hx Endocrine Disorders: Yes Hx Diabetes: Yes - MUSCULOSKELETAL Hx Musculoskeletal Disorders: Yes Hx Arthritis: Yes (right knee) Comment:: pain right knee - PSYCH Hx Psych Problems: No - HEMATOLOGY/ONCOLOGY Hx Hematology/Oncology Disorders: No Family Medical History Any Significant Family History?: Yes Hx Diabetes: Father, Mother Hx Heart Disease: Mother, Brother/Sister Physical Exam - General General Appearance: Alert, Oriented x3, Cooperative, No acute distress - Head Head exam: Normal inspection - Eye Eye exam: Normal appearance, PERRL Pupils: Normal accommodation - ENT ENT exam: Normal exam, Mucous membranes moist, Normal external ear exam, Normal orophraynx, TM's normal bilaterally Ear exam: Normal external inspection. negative: External canal tenderness Nasal Exam: Normal inspection. negative: Discharge, Sinus tenderness Mouth exam: Normal external inspection, Tongue normal Teeth exam: Normal inspection. negative: Dental caries Throat exam: Normal inspection. negative: Tonsillar erythema, Tonsillar exudate - Neck Neck exam: Normal inspection, Full ROM. negative: Tenderness - Respiratory Respiratory exam: Normal lung sounds bilaterally. negative: Respiratory distress - Cardiovascular Cardiovascular Exam: Regular rate, Normal rhythm, Normal heart sounds - GI/Abdominal GI/Abdominal exam: Soft, Normal bowel sounds. negative: Tenderness - Rectal Rectal exam: Deferred - exam: Deferred - Extremities Extremities exam: Normal inspection, Full ROM, Normal capillary refill. negative: Tenderness - Back Back exam: Reports: Normal inspection, Full ROM. Denies: Muscle spasm, Rash noted, Tenderness - Neurological Neurological exam: Alert, Normal gait, Oriented X3, Reflexes normal - Psychiatric Psychiatric exam: Normal affect, Normal mood - Skin Skin exam: Dry, Intact, Normal color, Warm Course Vital Signs 05/01/17 08:14 Temperature 97.9 F Pulse Rate 77 Respiratory 20 Rate Blood Pressure 157/83 Pulse Ox 98 - Reevaluation(s) Reevaluation #1: blow clots out and placed TLE on cotton ball and than cautery to kesselbach's with silver nitrate 05/01/17 11:06 Reevaluation #2: bleeding stopped 05/01/17 11:12 Reevaluation #3: still bleeding and inserted a inflatable rhino rockiet with air and it is a anterior packing 05/01/17 12:07 Reevaluation #4: bleeding controlled 05/01/17 12:23 Medical Decision Making - Lab Data Result diagrams: 05/01/17 09:00 Disposition Clinical Impression: Anterior epistaxis Disposition: Home, Self-Care Condition: (1) Good Instructions: Nosebleed (ED) Additional Instructions: follow up with Dr. Jordan in 2 days to remove nasal blimp or return to the ED stop aspirin and brilanta for 3 days Forms: Patient Portal Access Time of Disposition: 11:14 Quality - Quality Measures Quality Measures: N/A - Blood Pressure Screening Does Patient Have Any of the Following: No, Active Dx of HTN Blood Pressure Classification: Pre-Hypertensive BP Reading Systolic Measurement: 157 Diastolic Measurement: 83 Screening for High Blood Pressure: Patient Exclusion, Hx of HTN [[id number]]
[2017-05-01 09:17] LABS: INR 1.05; PROTHROMBIN TIME (PATIENT) 11.3 SECONDS (9.5-12.1)
[2017-05-01] MEDS: TOPICAL LIDOCAINE W/ EPI 5 ML TOP ONE (09:59)
== END 2017-05-01 12:47 | disposition home or self-care (01) ==
LOC: ER 08:09
DX: R04.0 Epistaxis (principal); Z79.01 Long term (current) use of anticoagulants
CPT/HCPCS: 30901; 85025; 85610; 99283